=== PATIENT | male | born 1980 | race Caucasian/White ===

== ENCOUNTER 2018-11-16 06:46 | Emergency (ER) | payer MEDICAID ==
[~2018-11-16] VITALS: Ht 152.4 cm; Wt 81.0 kg
[2018-11-16 06:48] VITALS: BP 160/77; RESP 18; Ht 152.4 cm; Wt 81.0 kg
[2018-11-16] MEDS ORDERED: AZIT250T PO (07:47)
[2018-11-16] MEDS ORDERED: IBUP-1542 PO (07:47)
[2018-11-16] MEDS ORDERED: D-ME473S2 PO (07:47)
--- NOTE | 2018-11-16 07:58 | ERD ---
ER Documentation Chief Complaint Chief Complaint COUGH/HEADACHE X 3 DAYS HPI 37-year-old male presents with productive cough for last 4 days. Also has body aches and headache. He has had some blood-tinged mucus. Denies history of smoking. Denies abdominal pain, vomiting, additional symptoms. ROS All systems reviewed and are negative except as per history of present illness. Medications Home Meds Active Scripts Ibuprofen* (Motrin*) 600 Mg Tab, 600 MG PO Q6, #15 TAB Prov:VITO SAMUEL MD 11/16/18 Dextromethorphan Hb-Promethazine Hcl* (Promethazine DM* Syrup) 473 Ml Syrup, 5 ML PO Q6 PRN for COUGH for 5 Days, ML Prov:VITO SAMUEL MD 11/16/18 Azithromycin* (Zithromax*) 250 Mg Tablet, 250 MG PO .ZPACK DIRECTED, #6 TAB TAKE 500 MG (2 TABS) THE FIRST DAY THEN 250 MG (1 TAB) DAYS 2-5 Prov:VITO SAMUEL MD 11/16/18 FmHx Family History: No diabetes, No coronary disease, No other Physical Exam Vitals Vital Signs Date Temp Pulse Resp B/P (MAP) Pulse Ox O2 O2 Flow FiO2 Time Delivery Rate 11/16/18 98.3 102 18 160/77 99 06:48 (104) Physical Exam Const: No acute distress Head: Atraumatic Eyes: Normal Conjunctiva ENT: Normal External Ears, Nose and Mouth. TMs and oropharynx normal. Neck: Full range of motion. No meningismus. Resp: Clear to auscultation bilaterally and rhonchi without rales, wheezing or retractions. Cardio: Regular rate and rhythm, no murmurs Abd: Soft, non tender, non distended. Normal bowel sounds Skin: No petechiae or rashes Back: No midline or flank tenderness Ext: No cyanosis, or edema Neur: Awake and alert Psych: Normal Mood and Affect Procedures/MDM Chest X-ray 1V Interpreted by me: Soft Tissue: No acute abnormalities Bones: No acute abnormalities Mediastinum/Cardiac Silhouette/Lungs: No acute abnormalities. Impression- normal 1 view chest x-ray Patient presents with worsening productive cough with blood-tinged sputum over the last week associated with subjective fevers, body aches, dizziness, bitemporal headache, right ear pain with no significant acute concerning signs or symptoms.. There is no evidence of hypoxemia, rest or distress, Accu-Chek is normal. Patient will be treated empirically worsening symptoms with Zithromax, promethazine, ibuprofen although this may be viral illness and patient counseled. No signs of active TB on x-ray, neoplasm. The patient was stable with no new complaints during the ER course. Clinically, there is no current evidence to suggest meningitis, sepsis, acute abdomen, pneumonia, stroke, acute coronary syndrome, pulmonary embolism, aortic dissection or any other emergent condition appearing to require further evaluation or hospitalization. Patient counseled regarding my diagnostic impression and care plan. Prior to discharge all questions answered. Pt agrees with treatment plan and understands strict return precautions. Pt is instructed to follow up with primary care provider within 24-48 hours. Precautionary instructions provided including instructions to return to the ER if not improving or for any worsening or changing symptoms or concerns. Departure Diagnosis: Primary Impression: Cough Condition: Stable Patient Instructions: Bronchitis, Antiobiotic Treatment (Adult) Referrals: NO PRIMARY,CARE PHYSICIAN (PCP) Additional Instructions: X-ray appears normal. Recheck for new or worsening symptoms with primary care doctor. VITO SAMUEL MD Nov 16, 2018 07:58
[2018-11-16 09:30] VITALS: PULSE 99
== END 2018-11-16 09:30 | disposition home or self-care (01) ==
LOC: FTE 06:46
DX: R05 Cough (principal)
CPT/HCPCS: 71045; 82962; Z7502